=== PATIENT | female | born 1940 | race Caucasian/White ===

== ENCOUNTER 2018-03-10 06:58 | Day surgery (SDC) | payer MEDICARE ==
--- NOTE | 2018-03-07 16:40 | HP ---
CC: Dr. Sarah Stahl * PREOPERATIVE HISTORY AND PHYSICAL: DATE OF ADMISSION/SURGERY: 03/10/18 This patient is scheduled for same-day surgery admission by Dr. Neville on Tuesday , 03/10/18. DATE OF PREOPERATIVE HISTORY AND PHYSICAL EXAMINATION: 03/07/18. ATTENDING SURGEON: Dr. Carolyn Neville * (dictated by Barbara Edward NP) CHIEF COMPLAINT: Left breast cancer. HISTORY OF PRESENT ILLNESS: The patient is a 77-year-old female recently evaluated by Dr. Neville; the patient first noticed bloody nipple discharge from the left breast about 1 year ago. At the same time, she felt a lump in the left breast. She attributes the discharge to the lump. She denied any other changes in the breast and denies breast pain. She never had radiation to the breast and never had a biopsy. She has no family history of breast or ovarian cancer and she has never been on oral contraceptives or other hormonal therapy. She was age 9 at menarche; she has no children; she cannot recall when she went through menopause. Dr. Neville performed fine-needle aspiration of the left breast lump and it proved positive for malignancy. She had an ultrasound and mammogram, which confirms the presence of a left breast lump and by ultrasound, it is of mixed consistency. Dr. Neville reviewed the above findings with the patient and discussed the nature of breast cancer and optional methods of treatment and the patient has opted for left breast lumpectomy and sentinel lymph node biopsy. Dr. Neville discussed the nature of the surgical procedure, the relevant risks and benefits, and today, I reviewed the expected postoperative care and recovery. The patient has had a chance to ask questions and stated that she understands the information and is satisfied with the answers given to her questions. She will sign surgical consent on the day of surgery. PAST MEDICAL HISTORY: Generally healthy; she does not have a primary care provider, but she is not aware of any medical conditions. PAST SURGICAL HISTORY: Hysterectomy in the 1970s; laparoscopic cholecystectomy in 2010. MEDICATIONS: None currently. ALLERGIES: No known drug allergies. SOCIAL HISTORY: She is a nonsmoker, she denies the use of alcohol or other substances. She remains physically active and has good family support; her niece accompanied her to the visit today and will be with her on the day of surgery. FAMILY HISTORY: No known breast or ovarian cancer; the patient's mother lived to [facility]; no known anesthesia complications, clotting disorders, or bleeding tendencies in the family. REVIEW OF SYSTEMS: Constitutional: No fevers, chills, excessive fatigue, or weight loss. Endocrine: No diabetes or thyroid disease. Hematologic: No easy bruising or bleeding. Breasts: Abnormal left breast mass. Respiratory: No dyspnea on exertion. No chronic cough. Cardiovascular: No anginal chest pain or palpitations. Gastrointestinal: No nausea, vomiting, diarrhea, GI bleeding, or constipation, no change in bowel habits. Genitourinary: No dysuria. Musculoskeletal: No joint or back pain. Integumentary: No chronic rashes or skin changes. Neurologic: No headache, blurred vision, or areas of focal weakness. General: No previous anesthesia complications, no history of deep vein thrombosis or pulmonary embolism, no history of blood transfusions. PHYSICAL EXAMINATION GENERAL SURVEY: The patient is a 77-year-old female, well-developed, well- nourished, in no acute distress. VITAL SIGNS: Height 67 inches, weight 142 pounds, body mass index 22.2. Blood pressure 156/90, pulse 72 and regular, respiratory rate 16, temperature 98.3, tympanic. HEENT: Benign. NECK: Supple. No cervical lymphadenopathy. No supraclavicular adenopathy. BREASTS: Symmetric in size; left breast with inverted nipple with apparent blood from the nipple. No skin dimpling. Palpation of the left breast reveals a large, firm, irregular mass in the superior aspect; palpation of the right breast reveals no discrete mass. The left breast discharge tests positive for blood. No axillary adenopathy bilaterally. LUNGS: Breath sounds bilaterally clear and equal. HEART: Regular rate and rhythm. No murmurs or rubs appreciated. ABDOMEN: Active bowel sounds, soft, nondistended. No obvious masses, organomegaly, or evidence of umbilical hernia. BACK: No CVA tenderness. PELVIC: Exam deferred. RECTAL: Exam deferred. EXTREMITIES: Full range of motion. No edema. No skin ulcerations. NEUROLOGIC: Alert and oriented x3. Steady gait. SKIN: Warm, dry, intact. IMPRESSION: Left breast cancer. PLAN: Same-day surgery admission to Dr. Neville's service on 03/10/18, for left breast lumpectomy and sentinel lymph node biopsy. EDEL EDWARD, EXECUTIVE OFFICE MANAGER [id number]/[facility] #: [id number] [facility]ATION HOSPITALDomitila
[~2018-03-10 06:58] MED LIST: Buffered Lidocaine 0.9% SYRIN* 5 ML/SYR SYRINGE INTRADERM ONE; Dexamethasone IV* 4 MG/ML 1 ML (4 MG) IV SLOW PU ONE; Famotidine IV* 10 MG/ML 2 ML (20 mg) IV ONE
[2018-03-10] MEDS ORDERED: Lidocaine 2.5%/Prilocain 2.5%* 5 GM TUBE ONE (07:08)
[2018-03-10] MEDS ORDERED: ceFAZolin 2 GM PREMIX (*) 2 GM/50 ML BAG IVPB ONE (07:08)
[2018-03-10] MEDS ORDERED: Dexamethasone IV* 4 MG/ML 1 ML (4 MG) ONE (07:08)
[2018-03-10] MEDS ORDERED: Famotidine IV* 10 MG/ML 2 ML (20 mg) ONE (07:08)
--- NOTE | 2018-03-10 09:43 | RAD ---
INDICATION: Left breast cancer. [place] node scan COMPARISON: Mammogram February 27, 2018 TECHNIQUE/FINDINGS: Informed consent was obtained. A routine timeout protocol was utilized. The left breast was then prepped in usual fashion and 4, periareolar, intradermal injections were made. The injections represented a total of 0.310 mCi of technetium 99m sulfur colloid. Within approximately 30 minutes the sentinel node was identified and marked on the skin surface. The patient tolerated the procedure well. Images were sent with the patient to the surgical holding area. IMPRESSION: SUCCESSFUL SENTINEL NODE SCAN.
[2018-03-10] MEDS ORDERED: Lidocaine 1% INJ* 10 MG/ML 30 ML SDV ONE (10:34)
[2018-03-10] MEDS ORDERED: Methylene Blue 0.5 %* 50 MG/10 ML AMP IV ONE (10:34)
[2018-03-10] MEDS ORDERED: Bupivacaine 0.25% W/EPI* 10 ML SDV ONE ×2 (10:59→12:12)
[2018-03-10] MEDS ORDERED: fentaNYL* 50 MCG/ML 2 ML VIAL (100 MCG VIAL) ONE (11:11)
[2018-03-10] MEDS ORDERED: Propofol* 10 MG/ML 20 ML BTL IV PUSH ONE ×2 (11:22→11:53)
[2018-03-10] MEDS ORDERED: Succinylcholine* 20 MG/ML 10 ML VIAL ONE (11:22)
[2018-03-10] MEDS ORDERED: Acetaminophen TAB* 325 MG PO PRN (11:46)
[2018-03-10] MEDS ORDERED: oxyCODONE/Acetamin 5/325 MG* TAB PO PRN (11:46)
[2018-03-10] MEDS ORDERED: Ondansetron INJ* 2 MG/ML VIAL IV PRN (11:46)
[2018-03-10] MEDS ORDERED: DiMENhydriNATE IV* 50 MG/ML VIAL IV PUSH PRN (11:46)
[2018-03-10] MEDS ORDERED: Naloxone* 0.4 MG/ML 1 ML VIAL IV PRN (11:46)
[2018-03-10] MEDS ORDERED: fentaNYL* 50 MCG/ML 2 ML VIAL (100 MCG VIAL) IV PRN (11:46)
[2018-03-10] MEDS ORDERED: Lidocaine 2% PF * 5 ML VIAL ONE (11:47)
[2018-03-10] MEDS ORDERED: Ondansetron INJ* 2 MG/ML VIAL ONE (11:47)
[2018-03-10 13:33] VITALS: BP 176/97
--- NOTE | 2018-03-11 01:37 | OP ---
CC: [facility]; Dr. River Gerardo OPERATIVE REPORT: DATE OF OPERATION: 03/10/18 DATE OF : 36 SURGEON: Carolyn Neville MD COMMUNITY MARKETING COORDINATOR: Barbara Edward NP PRE-OP DIAGNOSIS: Left breast cancer. POST-OP DIAGNOSIS: Left breast cancer. OPERATIVE PROCEDURE: Excision of left breast cancer and sentinel lymph node biopsy. INDICATIONS: Ms. Mercer is an 78-year-old woman who was recently diagnosed with left breast cancer pr ompting the plan for surgical intervention. On the morning of the surgery, she underwent sentinel ly mph node localization without difficulty. DESCRIPTION OF PROCEDURE: She was then brought to the operating room, placed on the OR table in the supine position and given general anesthesia. The left breast was prepped and draped in the usual st erile fashion. After infiltrating with local anesthetic, a curvilinear incision was made in the supe rior breast over the mass and subcutaneous tissue was divided with electrocautery to excise the mass completely. It was handed off as a specimen. Hemostasis was assured with electrocautery and then th e cavity was marked with clips and then additional local was instilled into the wound and closure was accomplished with 3-0 Vicryl in the subcutaneous layer and the skin was closed with 4-0 Prolene in a subcuticular fashion. Attention was then turned to the axilla. Here, using the navigator, the appr oximate location of the sentinel lymph node was identified and then a curvilinear incision was made i n that area. Subcutaneous tissue was then divided with electrocautery. The navigator was again used to identify the location of the sentinel node and after some searching in the deeper layers, the sen tinel node proved to be a slightly more superficial layer. It was identified. It had counts of arou nd 2500. It was excised and handed off as a specimen and then the axillary bed counts were checked a nd axillary bed was around 4. Additional local was instilled into the wound and then closure was acc omplished with 3-0 Vicryl in the subcutaneous layer and the skin was closed with 4-0 Prolene in a sub cuticular fashion. Steri-Strips and a dry sterile dressing were applied to both incisions. All spong e and instrument counts were correct. The patient tolerated the procedure well and was transferred t o Recovery in a stable condition. [id number]/[facility] #: [id number]
== END 2018-03-10 14:00 | disposition home or self-care (01) ==
LOC: OR 06:58
PROVIDERS: ATTEND Surgery
DX: C50.912 Malignant neoplasm of unspecified site of left female breast (principal); R03.0 Elevated blood-pressure reading, without diagnosis of hypertension
CPT/HCPCS: 78195; 88307; 88342; A9270-GY; A9541; J0330; J0690; J1100; J2405; J2704; J3010